=== PATIENT | male | born 1985 | race Caucasian/White ===

== ENCOUNTER 2016-06-01 17:16 | Emergency (ER) | payer MEDICAID ==
[~2016-06-01] VITALS: Ht 180.3 cm; Wt 90.7 kg
[~2016-06-01 17:16] MED LIST: 'PARAFON FORTE500 M1 PO; BACTRIM DS 8001 TA1 PO; BACTROBAN CREAM15 GM T; FLEXERIL10 MG PO; HYDROCODONE BIT1 T11 PO; KEFLEX500 M1 PO; MOTRIN800 MG PO; NAPROSYN500 MG PO; PREDNISONE10 MG PO; PREVACID SOLUTA30 MG PO; ROBITUSSIN AC 110 ML PO
== END 2016-06-01 19:14 | disposition home or self-care (01) ==
LOC: ED 17:16
DX: M25.562 Pain in left knee (principal); X58.XXXA Exposure to other specified factors, initial encounter; Y93.89 Activity, other specified; Y92.9 Unspecified place or not applicable; Y99.9 Unspecified external cause status

== ENCOUNTER 2017-03-15 12:45 | Emergency (ER) | payer OTHER ==
[~2017-03-15] VITALS: Ht 180.3 cm; Wt 90.7 kg
[2017-03-15] MEDS ORDERED: Motrin,Rufen800 MG PO (13:31)
== END 2017-03-15 13:20 | disposition home or self-care (01) ==
LOC: ED 12:45
DX: S30.1XXA Contusion of abdominal wall, initial encounter (principal); W22.8XXA Striking against or struck by other objects, initial encounter; Y93.89 Activity, other specified; Y92.098 Other place in other non-institutional residence as the place of occurrence of the external cause; Y99.8 Other external cause status

== ENCOUNTER 2017-03-23 10:33 | Emergency (ER) | payer OTHER ==
[~2017-03-23] VITALS: Ht 172.7 cm; Wt 90.7 kg
[~2017-03-23 10:33] MED LIST changes: +Motrin,Rufen800 MG PO
[2017-03-23 10:55] LABS: BASO % 0.2 % (0.0-1.0); EOS % 0.5 % (1.0-4.0); HEMATOCRIT 45.7 % (42.0-52.0); HEMOGLOBIN 15.6 g/dl (14.0-18.0); LYMPH # 0.8 10*3/uL (1.3-4.4); LYMPH % 13.3 % (27.0-41.0); MEAN CELL VOLUME 90.3 fl (80.0-94.0); MEAN CORPUSCULAR HGB 30.8 pg (27.0-31.0); MEAN CORPUSCULAR HGB CONC 34.1 g/dl (33.0-37.0); MEAN PLATELET VOLUME 9.3 fl (9.6-12.3); MONO # 0.9 10*3/uL (0.1-1.0); MONO % 13.5 % (3.0-9.0); NEUT # 4.5 10*3/uL (2.3-7.9); PLATELET COUNT AUTOMATED 240 10*3/uL (130-400); RED BLOOD COUNT 5.06 10*6/uL (4.50-5.90); RED CELL DISTRI WIDTH 13.3 % (0-14.5); WHITE BLOOD COUNT 6.3 10*3/uL (4.8-10.8)
[2017-03-23 11:06] LABS: ACT PARTIAL THROMBO TIME 23.8 SECONDS (20.8-31.5)
[2017-03-23 11:14] LABS: ALBUMIN 3.7 gm/dl (3.1-4.5); ALKALINE PHOSPHATASE 71 U/L (45-117); BUN 8 mg/dl (7-24); CHLORIDE 101 mmol/L (98-107); CREATININE 0.77 mg/dL (0.70-1.30); POTASSIUM 4.4 mmol/L (3.5-5.1); SGOT/AST 40 IU/L (3-35); SGPT/ALT 55 U/L (12-78); SODIUM 135 mmol/L (136-145); TOTAL PROTEIN 8.3 gm/dL (6.4-8.2)
[2017-03-23 11:17] LABS: TROPONIN I < 0.015 ng/ml (<0.045)
[2017-03-23] MEDS ORDERED: MEDROL DOSEPAK4 MG PO (11:39)
== END 2017-03-23 11:50 | disposition home or self-care (01) ==
LOC: ED 10:33
PROVIDERS: Emergency Medicine
DX: R09.1 Pleurisy (principal); R07.9 Chest pain, unspecified; E11.9 Type 2 diabetes mellitus without complications; I10 Essential (primary) hypertension; E78.00 Pure hypercholesterolemia, unspecified; F17.200 Nicotine dependence, unspecified, uncomplicated

== ENCOUNTER 2018-10-14 11:30 | Emergency (ER) | payer SELFPAY ==
[~2018-10-14] VITALS: Ht 180.3 cm; Wt 90.7 kg
[~2018-10-14 11:30] MED LIST changes: +MEDROL DOSEPAK4 MG PO
[2018-10-14] MEDS ORDERED: IBUPROFEN600 MG PO (11:41)
[2018-10-14] MEDS ORDERED: CEPHALEXIN500 M1 PO (11:41)
== END 2018-10-14 13:32 | disposition home or self-care (01) ==
LOC: ED 11:30
DX: S41.132A Puncture wound without foreign body of left upper arm, initial encounter (principal); W26.0XXA Contact with knife, initial encounter; Y93.89 Activity, other specified; Y92.096 Garden or yard of other non-institutional residence as the place of occurrence of the external cause; Y99.8 Other external cause status

== ENCOUNTER 2019-04-18 12:05 | Emergency (ER) | payer SELFPAY ==
[~2019-04-18] VITALS: Ht 180.3 cm; Wt 90.7 kg
[~2019-04-18 12:05] MED LIST changes: +CEPHALEXIN500 M1 PO; +IBUPROFEN600 MG PO
[2019-04-18] MEDS ORDERED: NAPROSYN500 MG PO (13:54)
== END 2019-04-18 14:05 | disposition home or self-care (01) ==
LOC: ED 12:05
DX: S89.92XA Unspecified injury of left lower leg, initial encounter (principal); F17.200 Nicotine dependence, unspecified, uncomplicated; Z79.899 Other long term (current) drug therapy; Z79.2 Long term (current) use of antibiotics; X50.1XXA Overexertion from prolonged static or awkward postures, initial encounter; Y93.89 Activity, other specified; Y92.89 Other specified places as the place of occurrence of the external cause; Y99.8 Other external cause status

== ENCOUNTER 2021-01-22 16:11 | Emergency (ER) | payer SELFPAY ==
[2021-01-22] MEDS ORDERED: AUGMENTIN 875875 MG PO (17:47)
[2021-01-22] MEDS ORDERED: FLONASE ALLERG9.9 ML NAS (17:47)
== END 2021-01-22 17:59 | disposition home or self-care (01) ==
LOC: ED 16:11
DX: K08.89 Other specified disorders of teeth and supporting structures (principal); J32.9 Chronic sinusitis, unspecified

== ENCOUNTER 2021-07-07 13:44 | Emergency (ER) | payer SELFPAY ==
[~2021-07-07] VITALS: Ht 180.3 cm; Wt 86.2 kg
[~2021-07-07 13:44] MED LIST changes: +AUGMENTIN 875875 MG PO; +FLONASE ALLERG9.9 ML NAS
== END 2021-07-07 14:47 | disposition home or self-care (01) ==
LOC: ED 13:44
DX: M62.830 Muscle spasm of back (principal)

== ENCOUNTER 2022-06-25 12:26 | Emergency (ER) | payer OTHER ==
[~2022-06-25] VITALS: Ht 180.3 cm; Wt 86.2 kg
[2022-06-25] MEDS ORDERED: HYDROCODONE-AC1 EACH PO (16:38)
== END 2022-06-25 16:44 | disposition home or self-care (01) ==
LOC: ED 12:26
DX: S62.646A Nondisplaced fracture of proximal phalanx of right little finger, initial encounter for closed fracture (principal); S80.211A Abrasion, right knee, initial encounter; V69.49XA Driver of heavy transport vehicle injured in collision with other motor vehicles in traffic accident, initial encounter; Y93.89 Activity, other specified; Y92.410 Unspecified street and highway as the place of occurrence of the external cause; Y99.8 Other external cause status

== ENCOUNTER → 2025-03-21 | Outpatient (CLI) | payer OTHER ==
[~2025-03-21] MED LIST changes: +HYDROCODONE-AC1 EACH PO
== END | disposition home or self-care (01) ==
LOC: RAD 11:25
PROVIDERS: ATTEND Nurse Practitioner Family
DX: M17.12 Unilateral primary osteoarthritis, left knee (principal); M25.511 Pain in right shoulder; M54.50 Low back pain, unspecified

== ENCOUNTER → 2025-04-06 | Outpatient (CLI) | payer OTHER | END | disposition home or self-care (01) | LOC: US 09:24 | PROVIDERS: ATTEND Nurse Practitioner Family | DX: K40.90 Unilateral inguinal hernia, without obstruction or gangrene, not specified as recurrent (principal) ==

== ENCOUNTER 2025-04-29 07:48 | Emergency (ER) | payer OTHER ==
[~2025-04-29] VITALS: Wt 93.0 kg
[2025-04-29] MEDS ORDERED: IBUPROFEN 800 MG TAB PO ONE (07:55)
[2025-04-29] MEDS ORDERED: hydrOXYzine hydrochloride 50 MG/ML VIAL IM ONE (07:55)
[2025-04-29 08:58] LABS: MEAN CELL VOLUME 89.4 fl (80.0-94.0)
[2025-04-29 08:59] LABS: BASO # 0.1 10*3/uL (0.0-0.1); BASO % 0.7 % (0.0-1.0); EOS # 0.1 10*3/uL (0.0-0.4); EOS % 1.0 % (1.0-4.0); MEAN CORPUSCULAR HGB 30.2 pg (27.0-31.0); MEAN PLATELET VOLUME 8.7 fl (9.6-12.3); MONO # 0.5 10*3/uL (0.1-1.0); MONO % 5.5 % (3.0-9.0); NEUT # 6.0 10*3/uL (2.3-7.9); NEUT % 74.1 % (47.0-73.0); NUCLEATED RED BLOOD CELL 0.0 % (0.0-0.0); NUCLEATED RED BLOOD CELL 0.0 10*3/uL (0.0-0.0); PLATELET COUNT AUTOMATED 288 10*3/uL (130-400); RED CELL DISTRI WIDTH 13.2 % (0-14.5)
[2025-04-29 09:20] LABS: BUN 9 mg/dl (9-23)
== END 2025-04-29 11:24 | disposition home or self-care (01) ==
LOC: ED 07:48
PROVIDERS: Student in an Organized Health Care Education/Training Program
DX: R51.9 Headache, unspecified (principal); T43.595A Adverse effect of other antipsychotics and neuroleptics, initial encounter; F41.9 Anxiety disorder, unspecified; Z98.890 Other specified postprocedural states; Y92.89 Other specified places as the place of occurrence of the external cause